=== PATIENT | male | born 1955 | race Caucasian/White ===

== ENCOUNTER 2023-07-31 09:39 | Outpatient (CLI) | payer OTHER | END 2023-07-31 09:40 | disposition critical access hospital (66) | LOC: EMS 09:39 | DX: R00.2 Palpitations (principal); R07.89 Other chest pain; R06.02 Shortness of breath; R42 Dizziness and giddiness; R53.1 Weakness | CPT/HCPCS: A0425; A0427 ==

== ENCOUNTER 2023-07-31 10:11 | Emergency (ER) | payer OTHER ==
--- NOTE | 2023-07-31 10:22 | ED Physician Documentation ---
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 He has a usual 12 to 14-hour day. 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 He is complaining of a feeling of palpitation and not feeling well. Review of Systems Constitutional: denies: Fever Eyes: denies: Decreased vision Ears: denies: Ear pain Nose: denies: Rhinorrhea / runny nose, Congestion Throat: denies: Sore throat Cardiac: reports: Palpitations. denies: Chest pain / pressure Respiratory: denies: Dyspnea, Cough GI: denies: Abdominal Pain, Nausea, Vomiting, Constipation, Diarrhea : denies: Dysuria, Frequency Skin: denies: Rash Musculoskeletal: denies: Neck pain, Back pain, Extremity pain Neurologic: denies: Generalized weakness, Focal weakness, Numbness PD PAST MEDICAL HISTORY - Past Medical History Cardiovascular: None Respiratory: None Endocrine/Autoimmune: None GI: GERD - Past Surgical History Past Surgical History: Yes HEENT: Tonsil/Adenoidectomy - Present Medications Home Medications: Ambulatory Orders Medication Instructions Recorded Confirmed Esomeprazole Magnesium [Nexium] 20 mg PO DAILY 07/04/15 07/04/15 Multivitamin [Multivitamins] 1 tab PO DAILY 07/04/15 07/04/15 - Allergies Allergies/Adverse Reactions: Allergies Allergy/AdvReac Type Severity Reaction Status Date / Time No Known Drug Allergies Allergy Verified 07/31/23 10:25 - Social History Does the pt smoke?: No Smoking Status: Former smoker Does the pt drink ETOH?: Yes Does the pt have substance abuse?: No - Immunizations Immunizations are current?: Yes - POLST Patient has POLST: No PD ED PE NORMAL - Vitals Vital signs reviewed: Yes (hypertensive ) - General General: Alert and oriented X 3, No acute distress, Well developed/nourished - HEENT HEENT: Atraumatic, PERRL, EOMI, Other (dtry mucous membranes) - Neck Neck: Supple, no meningeal sign, No bony TTP - Cardiac Cardiac: RRR, No murmur - Respiratory Respiratory: No respiratory distress, Clear bilaterally - Abdomen Abdomen: Soft, Non tender - Back Back: No CVA TTP, No spinal TTP - Derm Derm: Normal color, Warm and dry, No rash - Extremities Extremities: No deformity, No edema - Neuro Neuro: Alert and oriented X 3, transportation aid 2-12 intact, No motor deficit, No sensory deficit, Normal speech Eye Opening: Spontaneous Motor: Obeys Commands Verbal: Oriented GCS Score: 15 - Psych Psych: Normal mood, Other (affect is flat) Results - Vitals Vitals: Vital Signs - 24 hr 07/31/23 10:20 Temperature 36.5 C Heart Rate 73 Respiratory 18 Rate Blood Pressure 140/90 H O2 Saturation 100 Oxygen O2 Source Room air - EKG (time done) 1090 EKG releavant findings:: EKG personally interpreted by author of this note. Relevant findings are: Rate: Rate (enter#) (69) Rhythm: NSR Ischemia: Normal ST segments Compare to prior EKG: Changed from prior EKG (SPT --16 the rate is slower and the PVC represented previously is not seen today. ) Computer interpretation: Agree with computer - Labs Labs: Laboratory Tests 07/31/23 07/31/23 07/31/23 10:35 10:35 10:35 WBC 6.0 RBC 5.49 Hgb 16.0 Hct 46.2 MCV 84.2 MCH 29.1 MCHC 34.6 RDW 13.0 Plt Count 235 MPV 11.6 H Neut # (Auto) 4.0 Lymph # (Auto) 1.4 L [place] # (Auto) 0.5 Eos # (Auto) 0.1 Baso # (Auto) 0.1 Absolute Nucleated RBC 0.00 Nucleated RBC % 0.0 Sodium 136 Potassium 3.6 Chloride 105 Carbon Dioxide 22 Anion Gap 9.0 BUN 9 Creatinine 0.8 Estimated GFR (MDRD) 97 Glucose 122 H Calcium 9.7 Total Bilirubin 0.8 AST 14 ALT 19 Alkaline Phosphatase 46 Troponin I High Sens 3.6 Total Protein 7.4 Albumin 4.3 Globulin 3.1 Albumin/Globulin Ratio 1.4 Lipase 21 TSH 3.21 Urine Color Urine Clarity Urine pH Ur Specific [place] Urine Protein Urine Glucose (UA) Urine Ketones Urine Occult Blood Urine Nitrite Urine Bilirubin Urine Urobilinogen Ur Leukocyte Esterase Ur Microscopic Review Urine Culture Comments 07/31/23 11:53 WBC RBC Hgb Hct MCV MCH MCHC RDW Plt Count MPV Neut # (Auto) Lymph # (Auto) [place] # (Auto) Eos # (Auto) Baso # (Auto) Absolute Nucleated RBC Nucleated RBC % Sodium Potassium Chloride Carbon Dioxide Anion Gap BUN Creatinine Estimated GFR (MDRD) Glucose Calcium Total Bilirubin AST ALT Alkaline Phosphatase Troponin I High Sens Total Protein Albumin Globulin Albumin/Globulin Ratio Lipase TSH Urine Color YELLOW Urine Clarity CLEAR Urine pH 8.5 H Ur Specific [place] 1.010 Urine Protein NEGATIVE Urine Glucose (UA) NEGATIVE Urine Ketones NEGATIVE Urine Occult Blood NEGATIVE Urine Nitrite NEGATIVE Urine Bilirubin NEGATIVE Urine Urobilinogen 0.2 (NORMAL) Ur Leukocyte Esterase NEGATIVE Ur Microscopic Review NOT INDICATED Urine Culture Comments NOT INDICATED - Rads (name of study) chest Relevant Findings:: Prelim report reviewed (Impression: Portable chest within normal limits for age.), EMP independent interpretation of test Procedures - IVC sono (time) 1130 Bedside IVC sono: IVC measures (cm) (0.92), IVC collapsed c insp (cm) (complete), Dehydration (est 2 liter deficit) PD Medical Decision Making - ED course Complexity details: reviewed old records, reviewed results, re-evaluated patient, considered differential, d/w patient Reviewed Lab Results: We checked a complete blood count showing a normal white blood cell count normal hemoglobin hematocrit and platelets chemistries equally boring with normal electrolytes normal kidney and liver function TSH normal at 3.21 urinalysis is unremarkable as well. These laboratory test did not contribute to any specific diagnosis. A high-sensitivity troponin was also negative at 3.6. ED course: 67-year-old Dg Taylor presents to the emergency department with vague complaints mostly related to not feeling well. He gives a good history for dehydration and this is confirmed with the use of POCUS to interrogate the inferior vena cava. He is found to be about 2 L deficit and he is administered a liter of saline. He feels improved and will make changes to his work to accommodate fluid intake. Departure - Departure Disposition: 01 Home, Self Care Clinical Impression: Dehydration Condition: Stable Instructions: ED Dehydration Follow-Up: Jimmy Sandoval MD [Physician No Access] - Comments: Dg, today it looks like the symptoms you are experiencing are related to dehydration. This does look like this is a problem with your work and you will need to make some modifications to stay hydrated. The recommendation is to drink 2 quarts of fluid daily and you should drink an additional quart of fluid today to catch up to where you need to be.
[2023-07-31 10:52] LABS: BASOPHILS # (AUTO) 0.1 10^3/uL (0.0-0.1); EOSINOPHILS # (AUTO) 0.1 10^3/uL (0.0-0.7); EOSINOPHILS % (AUTO) 0.8 %; HCT - HEMATOCRIT 46.2 % (42.0-52.0); LYMPHOCYTES # (AUTO) 1.4 10^3/uL (1.5-3.5); LYMPHOCYTES % (AUTO) 23.6 %; MEAN CORPUSCULAR HEMOGLOBIN 29.1 pg (27.0-31.0); MEAN CORPUSCULAR HGB CONC 34.6 g/dL (32.0-36.0); MEAN CORPUSCULAR VOLUME 84.2 fL (80.0-94.0); MEAN PLATELET VOLUME 11.6 fL (7.4-11.4); MONOCYTES # (AUTO) 0.5 10^3/uL (0.0-1.0); MONOCYTES % (AUTO) 8.2 %; NEUTROPHILS % (AUTO) 66.2 %; PLT - PLATELET COUNT 235 10^3/uL (130-450); RED BLOOD COUNT 5.49 10^6/uL (4.70-6.10)
--- NOTE | 2023-07-31 10:57 | XRAY Report ---
PROCEDURE: Chest 1V INDICATIONS: Chest pain TECHNIQUE: One view of the chest was acquired. COMPARISON: None. FINDINGS: Surgical changes and devices: None. Lungs and pleura: An incomplete inspiratory result is noted, with low lung volumes and crowding of t he vascular markings. No focal infiltrates are seen. No large pneumothorax or large pleural effusion can be seen. Mediastinum: Mediastinal contours appear normal. Heart size is normal. Bones and chest wall: No suspicious bony lesions. Age-appropriate degenerative changes are seen. O verlying soft tissues appear unremarkable. IMPRESSION: Portable chest within normal limits for age. Reviewed by: Elver Rodriguez MD on 07/31/2023 9:55 AM [facility] Approved by: Elver Rodriguez MD on 07/31/2023 9:55 AM [facility] Station ID: [id number]
[2023-07-31 11:21] LABS: ALBUMIN 4.3 g/dL (3.2-5.5); ALBUMIN/GLOBULIN RATIO 1.4 (1.0-2.2); BILIRUBIN,TOTAL 0.8 mg/dL (0.2-1.0); CALCIUM 9.7 mg/dL (8.5-10.3); CREATININE 0.8 mg/dL (0.6-1.3); POTASSIUM 3.6 mmol/L (3.5-4.5); TOTAL PROTEIN 7.4 g/dL (6.4-8.9)
[2023-07-31 11:24] LABS: TROPONIN I HIGH SENSITIVITY 3.6 ng/L (2.3-19.7)
[2023-07-31] MEDS: SODIUM CHLORIDE 0.9% 1,000 ML IV STA (11:48)
[2023-07-31 12:00] LABS: BILIRUBIN,URINE NEGATIVE (NEGATIVE); GLUCOSE, URINE (UA) NEGATIVE (NEGATIVE); KETONES,URINE (UA) NEGATIVE (NEGATIVE); LEUKOCYTE ESTERASE, URINE NEGATIVE (NEGATIVE); NITRITE,URINE NEGATIVE (NEGATIVE); OCCULT BLOOD,URINE NEGATIVE (NEGATIVE); PH,URINE 8.5 PH (5.0-7.5); PROTEIN,URINE NEGATIVE (NEGATIVE); UROBILINOGEN,URINE 0.2 (NORMAL) E.U./dL (NORMAL)
[2023-07-31 12:01] LABS: CLARITY,URINE CLEAR (CLEAR)
[2023-07-31 13:15] VITALS: BP 170/95; O2SAT 99
== END 2023-07-31 13:09 | disposition home or self-care (01) ==
LOC: EDUNIT# → ED 10:11
DX: E86.0 Dehydration (principal)
CPT/HCPCS: 36415; 80053; 81001; 81003; 83690; 84443; 84484; 85025; 87086; 93005; 96360; 99283